=== PATIENT | male | born 1980 | race Caucasian/White ===

== ENCOUNTER 2025-05-15 15:04 | Inpatient (IN) | payer MEDICAID ==
[~2025-05-15] VITALS: Ht 162.6 cm; Wt 63.5 kg
[2025-05-15 15:08] VITALS: O2SAT 99
[2025-05-15] MEDS ORDERED: MAGNESIUM/ALUMINUM HYDROXIDE/SIMETHICONE 30ML UDC PO ONE (18:00)
[2025-05-15] MEDS: MAGNESIUM/ALUMINUM HYDROXIDE/SIMETHICONE 30ML UDC PO SCH (19:52)
[2025-05-15 20:24] LABS: BASOPHILS % 2.5 % (0.0-2.0); EOSINOPHILS % 1.0 % (0.0-5.0); HEMATOCRIT. 46.7 % (42.0-52.0); HEMOGLOBIN. 15.5 g/dL (14.0-18.0); LYMPHOCYTES % 24.0 % (20.0-50.0); MEAN PLATELET VOLUME 7.6 fl (7.4-10.4); MONOCYTES % 10.7 % (2.0-8.0); NEUTROPHILS % 61.8 % (40.0-76.0); PLATELET 145 x1000/uL (130-400); RED BLOOD CELL COUNT 4.92 mill/uL (4.7-6.1); RED CELL DISTRIBUTION WIDTH 16.9 % (11.6-14.6)
[2025-05-15 20:36] LABS: CREATININE 0.7 mg/dL (0.6-1.3); UREA NITROGEN BLOOD < 5 mg/dL (9-23)
[2025-05-15 20:37] LABS: PROTEIN TOTAL 8.5 g/dL (6.0-8.3)
[2025-05-15 20:38] LABS: ASPARTATE AMINOTRANSFERASE 394 IU/L (<34); BILIRUBIN TOTAL 0.6 mg/dL (0.1-1.0)
[2025-05-15] MEDS ORDERED: CLONIDINE 0.1MG TABLET PO PRN (22:30)
[2025-05-15] MEDS ORDERED: ACETAMINOPHEN 325MG TABLET PO PRN ×2 (22:30)
[2025-05-15] MEDS ORDERED: IPRATROPIUM/ALBUTEROL 0.5-3(2.5)MG/3ML NEB HHN PRN (22:30)
[2025-05-15] MEDS ORDERED: GUAIFENESIN 200MG/10ML SUGAR FREE UDC PO PRN (22:30)
[2025-05-15] MEDS ORDERED: DOCUSATE SODIUM 100MG CAPSULE PO PRN (22:30)
[2025-05-15] MEDS ORDERED: MAGNESIUM/ALUMINUM HYDROXIDE/SIMETHICONE 30ML UDC PO PRN (22:30)
[2025-05-15] MEDS: KETOROLAC 15MG/ML VIAL IV SCH (23:52)
[2025-05-16 00:47] LABS: CLARITY URINE CLEAR (CLEAR); COLOR URINE YELLOW (YELLOW); GLUCOSE URINE NEGATIVE (NEGATIVE); KETONES URINE TRACE (NEGATIVE); LEUKOCYTE ESTERASE URINE NEGATIVE (NEGATIVE); NITRITE URINE NEGATIVE (NEGATIVE); OCCULT BLOOD URINE NEGATIVE (NEGATIVE); PH URINE 6.0 (4.5-8.0); PROTEIN URINE TRACE (NEGATIVE); SPECIFIC GRAVITY URINE 1.014 (1.005-1.030); UROBILINOGEN URINE 0.2 E.U./dL (0.2-1.0)
[2025-05-16 00:58] LABS: *AMPHETAMINES SCREEN URINE NEGATIVE (NEGATIVE); *BARBITURATES SCREEN URINE NEGATIVE (NEGATIVE); *BENZODIAZEPINES SCREEN URINE PRESUMPTIVE POSITIVE (NEGATIVE); *COCAINE SCREEN URINE NEGATIVE (NEGATIVE); CANNABINOID URINE SCREEN NEGATIVE (NEGATIVE); METHADONE URINE SCREEN NEGATIVE (NEGATIVE); OPIATES URINE SCREEN NEGATIVE (NEGATIVE); PHENCYCLIDINE URINE SCREEN NEGATIVE (NEGATIVE)
[2025-05-16 00:59] LABS: ECSTASY MDMA SCREEN URINE NEGATIVE (NEGATIVE)
[2025-05-16] MEDS: KETOROLAC 15MG/ML VIAL IV PRN (01:21)
[2025-05-16] MEDS: MVI, ADULT NO.1 10 ML, FOLIC ACID 1 MG, THIAMINE HCL 100 MG in SODIUM CHLORIDE 0.9% 1,0... IV SCH (01:30)
[2025-05-16] MEDS: PANTOPRAZOLE SODIUM 40 MG/VIAL IV SCH (01:30)
[2025-05-16] MEDS: MULTIVITAMINS,THER W-MINERALS TABLET PO SCH (01:31)
[2025-05-16] MEDS: THIAMINE HCL 100MG TABLET PO SCH (01:46)
[2025-05-16 01:55] VITALS: BP 131/90; PULSE 93; RESP 16; TEMP 37.0852
[2025-05-16 02:09] LABS: WBC URINE 0-2 /hpf (0-2)
[2025-05-16 02:10] LABS: RBC URINE 0-2 /hpf (0-2)
[2025-05-16 02:11] LABS: BACTERIA URINE NONE SEEN; SQUAMOUS EPITHELIAL CELL URINE FEW /lpf (RARE/1+)
[2025-05-16] MEDS: DEXT 5%/LACTATED RINGERS 1,000 ML IV ONE (05:50)
[2025-05-16 07:56] LABS: BASOPHILS % 2.4 % (0.0-2.0); EOSINOPHILS % 1.8 % (0.0-5.0); HEMATOCRIT. 40.5 % (42.0-52.0); HEMOGLOBIN. 13.6 g/dL (14.0-18.0); LYMPHOCYTES % 28.1 % (20.0-50.0); MEAN PLATELET VOLUME 7.8 fl (7.4-10.4); MONOCYTES % 12.5 % (2.0-8.0); NEUTROPHILS % 55.2 % (40.0-76.0); PLATELET 126 x1000/uL (130-400); RED BLOOD CELL COUNT 4.29 mill/uL (4.7-6.1); RED CELL DISTRIBUTION WIDTH 17.0 % (11.6-14.6)
[2025-05-16 08:00] VITALS: BP 128/85; PULSE 101; RESP 19; TEMP 36.8; O2SAT 96
[2025-05-16 08:15] LABS: PROTEIN TOTAL 7.0 g/dL (6.0-8.3)
[2025-05-16 08:16] LABS: ASPARTATE AMINOTRANSFERASE 285 IU/L (<34); BILIRUBIN DIRECT 0.3 mg/dL (<=3.0); BILIRUBIN TOTAL 0.8 mg/dL (0.1-1.0); T4 FREE 0.95 ng/dL (0.89-1.76)
[2025-05-16 08:17] LABS: CREATININE 0.6 mg/dL (0.6-1.3)
[2025-05-16 08:18] LABS: TRIGLYCERIDE 42 mg/dL (0-150); UREA NITROGEN BLOOD < 5 mg/dL (9-23)
[2025-05-16 08:19] LABS: LDL CHOLESTEROL 67 mg/dL (5-100)
[2025-05-16 08:20] LABS: PHOSPHORUS 3.8 mg/dL (2.5-4.9)
[2025-05-16] MEDS: FOLIC ACID 1MG TABLET PO SCH (08:26)
[2025-05-16] MEDS: LORAZEPAM 2MG/ML UD SYRINGE IV PRN (08:26)
[2025-05-16] MEDS: ENOXAPARIN 40MG/0.4ML SYR SUBCUT SCH (08:26)
[2025-05-16] MEDS: ONDANSETRON HCL 4MG/2ML INJ IV PRN (08:33)
[2025-05-16 09:02] LABS: TROPONIN I HIGH SENSITIVITY 113 ng/L (3.0-53)
[2025-05-16 12:00] VITALS: BP 116/72; PULSE 93; RESP 18; TEMP 36.3; O2SAT 98
[2025-05-16 16:00] VITALS: BP 121/66; PULSE 95; RESP 18; TEMP 36.8; O2SAT 98
[2025-05-16 20:00] VITALS: BP 112/68; PULSE 75; RESP 19; TEMP 36.7; O2SAT 96
[2025-05-16 23:54] VITALS: BP 119/85; PULSE 82; RESP 17; TEMP 36.4; O2SAT 95
[2025-05-17 04:00] VITALS: BP 137/61; PULSE 78; RESP 18; TEMP 36.4; O2SAT 97
[2025-05-17 08:00] VITALS: BP 117/78; PULSE 72; RESP 20; TEMP 36; O2SAT 96
[2025-05-17 08:41] VITALS: BP 133/87; PULSE 84; RESP 18
[2025-05-17] MEDS ORDERED: THIA250T3 MT (11:49)
[2025-05-17] MEDS ORDERED: THIA50TA12 MT (12:14)
== END 2025-05-17 12:50 | disposition home or self-care (01) | DRG 52 ==
LOC: ER 15:04 → 5WST 22:10 → EDBEDREQ 22:17 → EDBEDREQTM 22:17 → EDBEDREQSVC 22:45
PROVIDERS: ADMIT Hospitalist; ATTEND Hospitalist
DX: G92.8 Other toxic encephalopathy (principal); Z59.00 Homelessness unspecified; D72.819 Decreased white blood cell count, unspecified; F10.929 Alcohol use, unspecified with intoxication, unspecified; R74.01 Elevation of levels of liver transaminase levels; Z53.29 Procedure and treatment not carried out because of patient's decision for other reasons; R73.9 Hyperglycemia, unspecified; R74.8 Abnormal levels of other serum enzymes; Z79.899 Other long term (current) drug therapy
CPT/HCPCS: 36415; 80048; 80053; 80061; 80076; 80305; 81003; 82150; 82550; 83735; 84100; 84439; 84443; 84484; 85025; 97162; 97166; 99285; A4606; J1650; J1885; J2060; J2405; J2470; J3411; J3490; J7030